=== PATIENT | male | born 1955 | race Caucasian/White ===

== ENCOUNTER 2016-12-09 06:51 | Inpatient (IN) | payer BC ==
--- NOTE | 2016-11-24 10:42 | NUR ---
PMH, allergies, meds reviewed and documented. Preop and DOS instructions given including handouts of medications to stop before surgery, shower instructions with CHG soap, letter from Dr Melchor, Surgical Services pamphlet, and my contact information.
--- NOTE | 2016-12-01 16:13 | NUR ---
PT STATUS I CALLED THE PATIENT AND ASK HIM TO START BOOST TOMORROW AND TO TAKE IT TWICE A DAY FOR 7 DAYS. THE PATIENT WILL COME AND PLANT CHANGER BOOST TODAY AND START IT TOMORROW.
[~2016-12-09] VITALS: Ht 182.9 cm; Wt 116.2 kg
[2016-12-09] VITALS (23 sets, daily range): BP systolic 88–157; BP diastolic 49–95; PULSE 58–80; RESP 16–18; TEMP 97.8–98.4; O2SAT 92–99; Ht 182.9 cm; Wt 116.2 kg
[~2016-12-09 06:51] MED LIST: ALLO300T74 PO; ASCO10007 PO; CEFAZOLIN 2 GM VIAL IV ONE; CELECOXIB 200 MG CAPSULE PO ONE; CHOL200026 PO; FAMOTIDINE 20mg IVPB 50 ML IV ONE; FISH1CAP29 PO; HYDR25TA PO; IBUP200C62 PO; LIDOCAINE 1% (10mg/ml) 2ml SDV ID ONE; LOSA100T44 PO; METOCLOPRAMIDE 10mg/2ml INJECTION IV ONE; MONT10TA25 PO; MULT-139 PO; OMEP20TA24 PO; TRAM50TA4 PO
--- OUTSIDE RECORDS SUMMARY | 2016-12-09 06:56 | XMS REPORT | Continuity of Care Document ---
Author Author [facility] Organization [facility] Address Unknown Phone Unavailable Support Name Relationship Address Phone JESSE DAVIDSON Caregiver [address] [place] [phone] RY MOSHER MD Caregiver [facility] [address] [place] [address] NICA KAY Next Of Kin [address] [place] [address] Insurance Providers Payer Name Policy Number Subscriber Name Relationship [employer] Other [id number] Marga Kay 19 Self Advance Directives Directive Response Recorded Date/Time Advanced Directives Type None 03/29/14 8:03am Ordered Resuscitation Status Full Code 03/28/14 5:46pm Problems No known problems or medical conditions. Medications Medication Dose Route Sig Days/Qty Instructions Order Date Discontinued Date Status Hydrochlorothiazide 25 Mg PO DAILY 03/28/14 Active Itraconazole 100 Mg PO DAILY 03/28/14 Active Lisinopril 20 Mg PO DAILY 03/28/14 Active Simvastatin 20 Mg PO DAILY 03/28/14 Active Allopurinol 300 Mg PO DAILY 03/28/14 Active Omeprazole 20 Mg PO BEFORE BREAKFAST 03/28/14 Active Multivits W-Fe,Other Min 1 Tab PO DAILY 03/29/14 Active Cholecalciferol 1,000 Unit PO DAILY 03/29/14 Active Ascorbic Acid 500 Mg PO DAILY 03/29/14 Active Fish Oil/Arnett-3 Fatty Acids 1 Cap PO DAILY 03/29/14 Active Social History Social History Problem Response Recorded Date/Time Smoking Status Never smoker 03/29/2014 7:05am Chewing Tobacco Status No 03/29/2014 7:05am Hx Substance Use No 03/29/2014 7:05am Hx Alcohol Use Y 1x/WK 03/29/2014 7:05am Has the pt used tobacco in the last 12 months No 03/29/2014 7:05am Hospital Discharge Instructions No hospital discharge instructions. Plan of Care No plan of care. Functional Status No functional status results. Allergies, Adverse Reactions, Alerts Allergen Type Severity Reaction Status Last Updated No Known Drug Allergies Allergy Unknown Active 03/28/14 Immunizations Name Given Type Hx Influenza Vaccination Y FALL 2011 Historical Hx Pneumococcal Vaccination No Historical Hx Influenza Vaccination Y FALL 2011 Historical Vital Signs Acute Vital Signs Vital Response Date/Time Temperature (Fahrenheit) 97.5 deg F (96.8 - 99.1) Temperature (Calculated Celsius) 36.90023 degrees C (36.0 - 37.3) Temperature Source Temporal Pulse Rate (adult) 57 bpm (60 - 100) Respiratory Rate 16 breaths/min (10 - 20) O2 Sat by Pulse Oximetry 94 % (90 - 100) Blood Pressure 114/69 mm Hg Blood Pressure Source Automatic Cuff Height 6 ft 0 in Weight 239 lb Body Mass Index 32.0 kg/m^2 Results Test Source Date Result Interp. Ref. Range Comments Calcium Level March 29, 2014 6:45am 9.0 MG/DL N 8.4-10.2 COMMENT NSC WILL CALL Calculated Osmolality March 29, 2014 6:45am 273 MOSM/KG N 261-280 COMMENT NSC WILL CALL Glucose Level March 29, 2014 6:45am 97 MG/DL N 75-110 COMMENT NSC WILL CALL Glomerular Filtration Rate Calc March 29, 2014 6:45am 87 - COMMENT NSC WILL CALL BUN/Creatinine Ratio March 29, 2014 6:45am 29 RATIO H 6-26 COMMENT NSC WILL CALL Creatinine March 29, 2014 6:45am 0.9 MG/DL N 0.8-1.5 COMMENT NSC WILL CALL Blood Urea Nitrogen March 29, 2014 6:45am 26.0 MG/DL H 9-20 COMMENT NSC WILL CALL Anion Gap March 29, 2014 6:45am 10 MEQ/L N 5-15 COMMENT NSC WILL CALL Carbon Dioxide Level March 29, 2014 6:45am 28 MEQ/L N 22-30 COMMENT NSC WILL CALL Chloride Level March 29, 2014 6:45am 101 MEQ/L N 98-107 COMMENT NSC WILL CALL Potassium Level March 29, 2014 6:45am 3.9 MEQ/L N 3.6-5 COMMENT NSC WILL CALL Sodium Level March 29, 2014 6:45am 139 MEQ/L N 134-144 COMMENT NSC WILL CALL Turbidity March 29, 2014 6:45am < 20 0-20 COMMENT NSC WILL CALL Chemistry Specimen Hemolysis March 29, 2014 6:45am < 15 0-25 0-25: No Hemolysis.26-70: Slight Hemolysis - can falsely elevate K and Urine Protein. 71-285: Moderate Hemolysis - can falsely elevate K, Troponin I, CA 19-9, PTH, CSF GLucose, and Urine Protein, and can falsely decrease Phenytoin. 286-999: Gross Hemolysis - can falsely elevate K, Troponin I, CA 19-9, PTH, CSF Glucose, and Urine Protine, and can falsely decrease Phenytoin. Recommend specimen recollection. Icterus Index March 29, 2014 6:45am < 2 0-7 COMMENT NSC WILL CALL Procedures Procedure Status Date Provider(s) Shoulder arthroscopy completed 03/29/14 RY MOSHER MD
--- OUTSIDE RECORDS SUMMARY | 2016-12-09 06:56 | XMS REPORT | Continuity of Care Document ---
Author Author [facility] Address Unknown Phone Unavailable Allergies Medications Problems Procedures Results Encounters ACCT No. Visit Date/Time Discharge Status Pt. Type Provider Facility Loc./Unit Complaint [id number] 05/31/2013 11:26:00 2012 23:59:59 CLS Outpatient
[2016-12-09] MEDS ORDERED: NOZIN NASAL SWAB NS ONE ×2 (07:00→11:30)
[2016-12-09] MEDS ORDERED: LR 1,000 ML IV PRN (07:00)
[2016-12-09] MEDS ORDERED: ONDANSETRON 4mg/2ml INJECTION IV ONE (07:00)
[2016-12-09] MEDS ORDERED: DEXAMETHASONE 4mg/ml - 1ml INJECTION IV ONE (07:00)
[2016-12-09] MEDS ORDERED: ACETAMINOPHEN 500 MG TABLET PO ONE (07:00)
[2016-12-09] MEDS ORDERED: VANCOMYCIN 1 GRAM INJECTION ONE (08:36)
--- NOTE | 2016-12-09 09:08 | PDHPBRIEF ---
History and Physical Update Date DATE: 12/09/16 TIME: 09:08 I evaluated this patient and found no changes in the history and clinical exam findings. The recommendations and treatment plan is also unchanged from the previous documentation. DAVEY BROOKS Dec 09, 2016 09:08
[2016-12-09] MEDS ORDERED: MIDAZOLAM 2mg/2ml INJECTION IV ONE (09:26)
[2016-12-09] MEDS ORDERED: EPINEPHRINE 1mg/ml INJECTION AMP INJ ONE (09:43)
[2016-12-09] MEDS ORDERED: PHENYLEPHRINE 10mg/ml INJECTION IV ONE (09:56)
[2016-12-09] MEDS ORDERED: SALINE FLUSH 10ml SYRINGE IVF ONE (09:57)
[2016-12-09] MEDS ORDERED: TRANEXAMIC ACID 1,000 MG in NORMAL SALINE 100 ML IV ONE ×2 (10:15→11:15)
--- NOTE | 2016-12-09 10:17 | ANESPREOP ---
Anesthesia Record Date and Time DATE: 12/09/16 TIME: 08:06 Pre-Op Diagnosis Left hip degeneration Proposed Surgical Procedure LT GRETCHEN NPO since: Midnight Allergies: Coded Allergies: No Known Drug Allergies (Unverified Allergy, Unknown, 12/09/16) Ht/Wt/BMI Height: 6 ' 0.00 " Weight: 116.200 kg BMI: 34.7 kg/m2 Vital Signs Date Time Temp Pulse Resp B/P Pulse Ox O2 Delivery O2 Flow Rate FiO2 12/09/16 07:06 98.4 64 16 157/95 97 Room Air Medications Inpatient Medications Current Medications Medications (Trade) Dose Ordered Sig/Charity Start Time Stop Time Status Last Admin Dose Admin Lactated Ringer's (Lactated Ringers) 1,000 ml @ 50 mls/hr Q20H PRN 12/09/16 07:00 12/09/16 07:50 50 MLS/HR Allopurinol (Allopurinol) 300 Mg Tablet, 300 MG PO DAILY, (Reported) Last Taken: on 12/08/16544 Ascorbic Acid (Vitamin C) 1,000 Mg Tablet, 1 TAB PO DAILY, (Reported) Last Taken: on 12/08/1645 Cholecalciferol (Vitamin D3) (Vitamin D-3) 2, 000 Unit Capsule, 1 CAP PO DAILY, (Reported) Last Taken: on 12/08/1645 Hydrochlorothiazide (Hydrochlorothiazide) 25 Mg Tablet, 1 TAB PO DAILY, (Reported) Last Taken: on 12/08/1645 Ibuprofen (Ibuprofen) 200 Mg Capsule, 2 CAP PO Q4H PRN for PAIN, (Reported) Last Taken: on 12/01/16 Losartan Potassium (Losartan Potassium) 100 Mg Tablet, 100 MG PO DAILY, (Reported) Last Taken: on 12/08/1645 Montelukast Sodium (Montelukast Sodium) 10 Mg Tablet, 10 MG PO DAILY, (Reported) Last Taken: on 12/08/1645 Multivits W-Fe,Other Min (Multivitamin And Minerals) 1 Tab Tablet, 1 TAB PO DAILY, (Reported) Last Taken: on 12/08/1645 Omeprazole (Prilosec) 20 Mg Tablet.dr, 20 MG PO ACB, (Reported) Last Taken: on 12/09/16 0545 Tramadol HCl (Tramadol HCl) 50 Mg Tablet, 50 MG PO Q4H PRN for PAIN, (Reported) Take 1 tablet, by mouth, every 4 hours. Last Taken: on 12/08/16 2100 Currently on Beta Cheko: No Medical/Surgical History Anesthesia PMH: Reports: *Hypertension, Arthritis (HIPS; KNEES), Reflux ( controlled with med), Denies: Anesthesia Reactions (NO KNOWN AIRWAY ISSUES), Cancer, Clotting Problems, Deep Vein Thrombosis, Glaucoma, Malignant Hyperthermia, Renal Disease, Sleep Apnea Smoking Status: Never smoker Has pt. smoked today?: No Use Chewing Tobacco?: No Second Hand Exposure: No Substance Use Type: does not use Past Surgical History Orthopedic Surgeries: Yes - LT RCR 2013; RT RCR ; Left Total Knee Abdominal Surgeries: Yes - APPY Genitourinary Surgeries: No Cardiac Surgeries: No Endocrine Surgeries: No Reproductive Surgeries: No Neurological Surgeries: No Ear Surgeries: No Nose Surgeries: No Throat Surgeries: No Other Surgeries: Yes - COLONOSCOPY Anesthesia Adverse Reactions: FOUND none Pertinent Findings EKG Rhythm: Sinus Rhythm Physical Exam Respiratory: Lungs clear Cardiovascular: FOUND Regular rate, rhythm Airway Assessment Mallampati Score: II TMD: 3 Fingerbreadths Neck Extension: Good Overall Assessment: No Airway Concerns ASA: 3 Plan Regional: Spinal Discussion Discussed risks/options/alternatives of anesthesia and questions answered. Patient consents. Nursing pain assessment noted. Attestation Statement Prior to the delivery of any anesthetic medication, I examined the patient, developed the plan, obtained the patient's consent and discussed the risk and benefits of the procedure with the patient/guardian. CHERYL AMIN CRNA Dec 09, 2016 08:08
--- NOTE | 2016-12-09 10:46 | NUR ---
CM CM ATTEMPTED VISIT. PT IS AT PROCEDURE. NO FAMILY IS PRESENT IN THE ROOM. CM CONTACT INFORMATION IS LEFT AT THE BEDSIDE.
--- NOTE | 2016-12-09 11:12 | PDOPERATE ---
Operative Report Date of Operation 12/09/16 Side: Left Preoperative Diagnosis: hip primary DJD Postoperative Diagnosis Same as preoperative diagnosis. Operation/Procedure: total hip arthroplasty (left) Surgeon Herman Melchor MD Behavioral Assistant LARISSA Valdez Complications None. Regional Block: Spinal Estimated Blood Loss See Anesthesia Record. Fluids Please See Anesthesia Record. Description of Operation Mr. Kay and his left hip were identified and marked in the the preoperative holding area. He was then brought back to the operating suite and proper anesthesia was administered. He was then positioned lateral on the operating table. The left lower extremity was then prepped and draped in my normal sterile fashion. Timeout was performed with all operating room personnel. A posterior approach was utilized. Approximately 15 cm incision was made in the skin and dissection carried down to the muscle fascia which was then split in line with skin incision. Charnley retractor was placed and the short external rotators were identified and tagged and detached. Capsulotomy was performed and the hip dislocated. A femoral neck osteotomy was performed approximately 1 cm proximal to the lesser trochanter. The head was removed and acetabulum exposed. Labrum was removed. He had what appeared to be a old large tear of the anterior superior labrum. I then sequentially reamed to a size 55 and placed a 56 cup in 20 of anteversion. A liner was then placed. The proximal femur was exposed and prepared with a cookie cutter followed by reaming and broaching to a size 11. We trialed the 0 head. I trialed both a 132 and 127 neck. Both were stable with a 127 felt like to much offset. After thorough irrigation a final Secure Fit Max size 11 stem with 132 neck was placed. Again a 0 head felt good as far stability and leg length. A final ceramic 36 mm standard head was placed and the hip reduced. Betadine solution was allowed to sit in the wound for 3 minutes and fully irrigated out with normal saline. Joint cocktail was injected throughout soft tissue. The capsulotomy was repaired with Ethibond. Short external rotators were also repaired with Ethibond. 1 g of vancomycin powder was placed into the wound. The muscle fascia was then repaired with #1 Vicryl. I then left my system to close the subcutaneous tissue with 2-0 Vicryl followed by running 4-0 Monocryl skin followed by Dermabond and a sterile dressing. The patient with any placed back into supine position and taken to recovery room in the care of anesthesia. PABLO MELCHOR MD Dec 09, 2016 11:12
[2016-12-09] MEDS ORDERED: EPINEPHRINE 0.25 MG, BUPIVACAINE 0.25% 75 MG, MORPHINE SULFATE 15 MG, KETOROLAC 60 MG i... INJ ONE ×5 (11:15)
[2016-12-09] MEDS: NORMAL SALINE 1,000 ML IV SCH (11:29)
[2016-12-09] MEDS ORDERED: PRN ORDERS MC (11:30)
[2016-12-09] MEDS ORDERED: ONDANSETRON 4mg/2ml INJECTION IV PRN ×2 (11:30)
[2016-12-09] MEDS ORDERED: DiphenhydrAMINE 50 MG/ML INJECTION IV PRN (11:30)
[2016-12-09] MEDS ORDERED: HYDROMORPHONE 2mg/ml INJECTION IV PRN (11:30)
[2016-12-09] MEDS ORDERED: DiphenhydrAMINE 25 MG CAPSULE PO PRN (11:30)
[2016-12-09] MEDS ORDERED: METOCLOPRAMIDE 10mg/2ml INJECTION IV PRN (11:30)
[2016-12-09] MEDS ORDERED: LORAZEPAM 1 MG TABLET PO PRN (11:30)
[2016-12-09] MEDS ORDERED: SENNOSIDES 8.6 MG TABLET PO PRN (11:30)
--- NOTE | 2016-12-09 11:55 | ANESPO ---
Post-Op Note Date 12/09/16 Time: 11:55 Status Vital Signs Date Time Temp Pulse Resp B/P Pulse Ox O2 Delivery O2 Flow Rate FiO2 12/09/16 11:45 61 16 108/59 95 Room Air 12/09/16 11:35 6.00 12/09/16 11:31 97.9 Respiratory Function: Airway patent Cardiovascular Function: Regular pulse Telemetry Pattern: SR Mental Status: Alert/oriented Pain Level Intensity: 0 Unable to Assess Pain Due To: Medicated/Sleeping Hydration: IV infusing Complications during Recovery None apparent Follow-Up Instructions Instructions Per Surgeon CHERYL AMNI CRNA Dec 09, 2016 11:55
--- NOTE | 2016-12-09 12:05 | NUR ---
ARRIVAL TO FLOOR PT ARRIVED TO FLOOR, ASSISTED FROM CART TO BED. POST OP VITAL SIGNS STARTED. WILL CONTINUE TO MONITOR.
--- NOTE | 2016-12-09 13:04 | DI ---
Indication: ITS.REASON: POST LEFT HIP REPLACEMENT PROCEDURE: PELVIS W/1 VIEW LT HIP: Encounter: Initial Comparison: None Findings: Postoperative changes of left total hip replacement are seen. There is expected postoperative subcutaneous gas. No evidence of hardware failure or acute fracture. No retained radiopaque surgical instruments or sponges seen. Impression: New left total hip prosthesis without evidence of immediate complication. .
[2016-12-09] MEDS: ACETAMINOPHEN 325 MG TABLET PO SCH ×3 (13:31→20:56)
[2016-12-09] MEDS: TRAMADOL 50 MG TABLET PO PRN ×3 (13:32→22:15)
[2016-12-09] MEDS: NOZIN NASAL SWAB NS SCH ×2 (15:26→20:57)
[2016-12-09] MEDS: CEFAZOLIN 2 G in NORMAL SALINE 100 ML IV SCH (17:34)
--- NOTE | 2016-12-09 19:53 | NUR ---
PROGRESS NOTE PT ALERT AND ORIENTED X3. VITAL SIGNS STABLE ON RA. PT HAS WALKED THE HALLS X2 THIS SHIFT AND IS STEADY WITH GAITBELT WALKER AND X1 ASSIST. PT HAS BEEN GIVEN X2 DOSES OF TRAMADOL THIS SHIFT, RATED PAIN 0/10 AT SHIFT CHANGE. NO CONCERNS NOTED.
[2016-12-09] MEDS: ASPIRIN *EC* 325mg TABLET PO SCH (20:57)
[2016-12-09] MEDS ORDERED: SENNOSIDES 8.6 MG TABLET PO SCH (22:00)
[2016-12-10 00:12] VITALS: BP 102/64; PULSE 68; RESP 20; TEMP 97.9; O2SAT 96
[2016-12-10 00:26] VITALS: O2SAT 92
[2016-12-10] MEDS: NORMAL SALINE 1,000 ML IV SCH ×2 (01:36→12:29)
[2016-12-10] MEDS: CEFAZOLIN 2 G in NORMAL SALINE 100 ML IV SCH (01:42)
--- NOTE | 2016-12-10 04:51 | NUR ---
Summary Pt walked the halls before bed last night. Pt ambulates well with FWW, GB and standby assist. - Pt pain managed with Ultram. In the night, pt requested Ultram but the required amount of time had not passed since pt's last dose. Pt declined to being woken when Ultram available. - Oximetry monitor notified this nurse of pt O2 drop to 77%. This nurse arrived to pt room and witnessed a 23 second apneic episode. Pt roused and repositioned. No further O2 drops reported.
[2016-12-10 05:40] VITALS: O2SAT 92
[2016-12-10 06:15] LABS: HCT - HEMATOCRIT 35.3 % (41-53); HGB - HEMOGLOBIN 12.2 GM/DL (13.5-17.5); MEAN CORPUSCULAR HGB 32.9 UUG (26-34); MEAN CORPUSCULAR HGB CONC(MCHC 34.6 GM/DL (31-37); MEAN CORPUSCULAR VOLUME 95.1 UM3 (80-100); MEAN PLATELET VOLUME 9.8 UM3 (9.4-12.4); RED BLOOD COUNT 3.71 M/MM3 (4.50-5.90); WBC - WHITE BLOOD COUNT 9.5 T/MM3 (4.5-11.0)
[2016-12-10 06:24] LABS: ANION GAP 12 MEQ/L (5-15); BUN/CREATININE RATIO 26 RATIO (6-26); CALCIUM 8.6 MG/DL (8.4-10.2); CHLORIDE 106 MEQ/L (98-107); CO2 - CARBON DIOXIDE 22 MEQ/L (22-30); CREATININE 0.8 MG/DL (0.8-1.5); GLOMERULAR FILTRATION RATE 99; GLUCOSE 118 MG/DL (75-110); POTASSIUM 4.6 MEQ/L (3.6-5); SODIUM 140 MEQ/L (134-144)
[2016-12-10] MEDS: NOZIN NASAL SWAB NS SCH (06:27)
[2016-12-10] MEDS: TRAMADOL 50 MG TABLET PO PRN ×2 (06:28→10:32)
[2016-12-10] MEDS ORDERED: OMEPRAZOLE 20 MG CAPSULE PO SCH (06:30)
[2016-12-10 08:00] VITALS: PULSE 68; RESP 20
[2016-12-10] MEDS ORDERED: HYDROCHLOROTHIAZIDE 25 MG TABLET PO SCH (08:00)
--- NOTE | 2016-12-10 08:09 | PDORTHOPN ---
Subjective Date DATE: 12/10/16 TIME: 08:06 Subjective Lloyd is doing great. His pain is well controlled and he has ambulated good distances. No other complaints today. Objective Vital Signs Vital signs Vital Signs 12/09/16 12/09/16 12/10/16 12/10/16 22:16 22:18 00:12 00:26 Temp 97.9 Pulse 68 73 68 72 Resp 16 20 B/P 118/67 102/64 Pulse Ox 96 95 96 92 O2 Delivery Room Air Room Air Room Air Room Air 12/10/16 05:40 Pulse 68 Pulse Ox 92 O2 Delivery Room Air Height (Feet): 6 Height (Inches): 0.00 Weight (Kilograms): 116.200 General General Appearance: No Acute Distress Respiratory (Brief) Respiratory Brief: FOUND: non-labored Cardiovascular (Brief) Cardiac: FOUND: calf easily compressible, calf soft, nontender, pedal pulses intact Surgical Site Incision: FOUND: Mepilex dressing intact, no drainage Neurologic (Brief) Neurological Brief: FOUND: extremities w/o deficits, neuro intact Psychiatric (Brief) Psychiatric Brief: FOUND: alert, no acute distress Laboratory Laboratory Laboratory Tests 12/10/16 05:59 Laboratory Tests 12/10/16 05:59 Assessment & Plan Problems: (1) Degenerative arthritis of hip Status: Chronic Assessment & Plan: X S/P Lt GRETCHEN 12/09 SCDs , Aspirin and early mobilization for DVT prevention. ASA for DVT coverage x 6 weeks. Celebrex x 6 weeks if covered by insurance. Hospital Course Summary Disclaimer The visit summary below is not to be considered part of the above Progress Note. DAVEY BROOKS Dec 10, 2016 08:09
[2016-12-10 08:11] VITALS: BP 160/89; PULSE 77; RESP 16; TEMP 97.8; O2SAT 98
[2016-12-10] MEDS ORDERED: DOCUSATE SODIUM 100 MG CAPSULE PO SCH (09:00)
[2016-12-10] MEDS ORDERED: LOSARTAN 100 MG TABLET PO SCH (09:00)
[2016-12-10] MEDS ORDERED: POLYETHYL.GLYCOL 3350 PACKET 17gm PO SCH (09:00)
[2016-12-10] MEDS ORDERED: MONTELUKAST 10 MG TABLET PO SCH (09:00)
[2016-12-10] MEDS ORDERED: ALLOPURINOL 300 MG TABLET PO SCH (09:00)
[2016-12-10] MEDS ORDERED: CELECOXIB 200 MG CAPSULE PO SCH (09:00)
--- NOTE | 2016-12-10 10:15 | NUR ---
THIS WORKER MET WITH PT ON THIS DATE. THIS WORKER INTRODUCED SELF AND ROLE OF CASE MANAGEMENT. PT PLANNING TO RETURN HOME. HAS SPOUSE AT HOME AND OTHERS AVAILABLE IF NEEDED. PT DENIED OTHER NEEDS AT THIS TIME. PT HAS FWW, WANTS TO DO PHYSICAL THERAPY AT [facility], LAB AT [facility] AND USES [facility] IN [place] FOR PHARMACY. PT WAS GIVEN THIS WORKER'S CONTACT INFORMATION AND ENCOURAGED TO CONTACT THIS WORKER WITH ANY NEEDS. Addendum: 12/10/16 at 1102 by KUSHAL MARCELINO AWAITING PRESCRIPTION FROM PHYSICIAN BEFORE QUOTE CAN BE OBTAINED FROM PHARMACY.
[2016-12-10] MEDS: ASPIRIN *EC* 325mg TABLET PO SCH (10:18)
[2016-12-10] MEDS: ACETAMINOPHEN 325 MG TABLET PO SCH (10:21)
[2016-12-10 10:24] VITALS: PULSE 68; RESP 20
[2016-12-10] MEDS ORDERED: ASPI-917 PO (13:10)
[2016-12-10] MEDS ORDERED: ACET-2321 PO (13:10)
[2016-12-10] MEDS ORDERED: CELE200C PO (13:10)
[2016-12-10] MEDS ORDERED: TRAM50TA53 PO (13:10)
[2016-12-10] MEDS ORDERED: POLY17PO18 PO (13:10)
--- NOTE | 2016-12-10 13:11 | NUR ---
CM RX FOR CELEBREX 200MG PO BID X6 WEEKS IS CALLED TO [facility] AT [facility] (P# [phone]). CM REQUESTS RETURN CALL TO [facility] AT [phone] WITH PT OUT OF POCKET COST FOR MEDICATION.
--- NOTE | 2016-12-10 13:30 | NUR ---
CM THIS WORKER OBTAINED OUT OF POCKET COST FOR MEDICATION. PT WOULD NOT BE ABLE TO AFFORD THIS. BO DIAS NOTIFIED. ALTERNATE MEDICATIONS DISCUSSED. PT AWARE AND IN AGREEMENT. PT AND (NOW PRESENT) DENIED ANY FURTHER NEEDS AT THIS TIME.
[2016-12-10] MEDS ORDERED: NAPR220T61 PO (13:32)
--- NOTE | 2016-12-10 13:40 | DSPDOC ---
General Date Date DATE: 12/10/16 TIME: 13:37 Attending Physician Suhas Melchor MD Admitting Physician Suhas Melchor MD Consulting Physician Admitting Diagnosis PRIMARY DEGENERATIVE JOINT DISEASE LEFT HIP Discharge Diagnosis primary DJD left hip Procedures total hip arthroplasty Diagnosis Left hip primary DJD History of Present Illness HPI Elements This patient was admitted for elective surgical tx of end stage degenerative joint disease that failed to respond to conservative treatment. Further details of this is found in the admission H&P. Hospital Course After appropriate preoperative clearance and signing of operative consent, the patient was given IV antibiotics, according to orthopedic protocol. The patient was taken to the operating room and underwent elective joint arthroplasty. Following surgery, antibiotics were discontinued less than 24 hours according to joint protocol. Appropriate anticoagulants were initiated and SCDs added for DVT prevention. The dressing was clean, dry, and intact. Pain control was obtained via multimodal approach. Bowel motivation addressed with scheduled and PRN medications. Early mobilization was initiated through PT services. Discharge arrangements made by a collaborative effort between the patient and Case Management. Follow-up is scheduled in 2-3 weeks. Discharge instructions given by orthopedic providers and nursing staff at discharge. Discharge condition was good. Problems: (1) Degenerative arthritis of hip Status: Chronic Assessment & Plan: X S/P Lt GRETCEHN 12/09 SCDs , Aspirin and early mobilization for DVT prevention. ASA for DVT coverage x 6 weeks. Celebrex x 6 weeks if covered by insurance. Associated Postoperative Event: Acute P.O. Anemia Ongoing Care Required?: No Acute P.O. Anemia: Patient received IVF, Labs monitored daily, No intervention required, HGB drop-acceptable range Other Postoperative Events: Celbrex was D/C'd at discharge due to cost. Aleve was recommended. Laboratory Laboratory Tests Test 12/10/16 05:59 White Blood Count 9.5T/MM3 Red Blood Count 3.71M/MM3 Hemoglobin 12.2GM/DL Hematocrit 35.3% Mean Corpuscular Volume 95.1UM3 Mean Corpuscular Hemoglobin 32.9UUG Mean Corpuscular Hemoglobin Concent 34.6GM/DL RDW Standard Deviation 40.8FL Platelet Count 220T/MM3 Mean Platelet Volume 9.8UM3 Turbidity < 20 Sodium Level 140MEQ/L Potassium Level 4.6MEQ/L Chloride Level 106MEQ/L Carbon Dioxide Level 22MEQ/L Anion Gap 12MEQ/L Blood Urea Nitrogen 21.0MG/DL Creatinine 0.8MG/DL Glomerular Filtration Rate Calc 99 BUN/Creatinine Ratio 26RATIO Glucose Level 118MG/DL Calculated Osmolality 273MOSM/KG Calcium Level 8.6MG/DL Icterus Index < 2 Chemistry Specimen Hemolysis < 15 Home Meds Active Scripts Naproxen Sodium (Aleve) 220 Mg Tablet, 440 MG PO BIDWM for PAIN, #84 TAB Take 2 tablets, by mouth, twice daily with meals. Prov:BO CARRANZA 12/10/16 Polyethylene Glycol 3350 (Healthylax) 17 Gm Powd.pack, 17 G PO DAILY, #30 PACKET Prov:BO CARRANZA 12/10/16 Tramadol HCl (Ultram) 50 Mg Tablet, 50-100 MG PO Q4H Y for PAIN, #60 TAB Prov:BO CARRANZA 12/10/16 Aspirin *EC* (Aspirin EC) 325 Mg Tablet.dr, 325 MG PO BID, #84 TAB Prov:BO CARRANZA 12/10/16 Acetaminophen (Tylenol) 325 Mg Tablet, 650 MG PO QID, #100 TAB Prov:BO CARRANZA 12/10/16 Reported Medications Losartan Potassium (Losartan Potassium) 100 Mg Tablet, 100 MG PO DAILY, TAB 04/22/16 Ascorbic Acid (Vitamin C) 1,000 Mg Tablet, 1 TAB PO DAILY 04/21/16 Cholecalciferol (Vitamin D3) (Vitamin D-3) 2,000 Unit Capsule, 1 CAP PO DAILY 04/21/16 Hydrochlorothiazide (Hydrochlorothiazide) 25 Mg Tablet, 1 TAB PO DAILY 09/17/15 Montelukast Sodium (Montelukast Sodium) 10 Mg Tablet, 10 MG PO DAILY 08/20/15 Multivits W-Fe,Other Min (Multivitamin And Minerals) 1 Tab Tablet, 1 TAB PO DAILY, TAB 03/29/14 Omeprazole (Prilosec) 20 Mg Tablet.dr, 20 MG PO ACB, CAP 03/28/14 Allopurinol (Allopurinol) 300 Mg Tablet, 300 MG PO DAILY, TAB 03/28/14 Discontinued Reported Medications Ibuprofen (Ibuprofen) 200 Mg Capsule, 2 CAP PO Q4H Y for PAIN, CAP 12/08/16 Tramadol HCl (Tramadol HCl) 50 Mg Tablet, 50 MG PO Q4H Y for PAIN, TAB Take 1 tablet, by mouth, every 4 hours. 11/24/16 Discharge Disposition Please refer to Case Management Notes for patient's disposition. Estimated Blood Loss 100.0 BO CARRANZA Dec 10, 2016 13:40
[2016-12-10] MEDS ORDERED: OXYC1TAB8 PO (13:41)
--- NOTE | 2016-12-10 13:58 | NUR ---
DISCHARGE PATIENT IS ALERT AND ORIENTED X3. PATIENT DISCHARGE INSTRUCTIONS INCLUDE: NEW MEDICATIONS, CONTINUED MEDICATIONS, STOPPED MEDICATIONS, REASONS TO CALL DOCTOR AND/OR SEEK IMMEDIATE CARE, SIGNS AND SYMPTOMS OF INFECTION, INCISION/DRESSING CARE, ACTIVITY/BATHING, DIET, AND DI FOR POST OP ORTHO. PERSONAL BELONGINGS RETURNED. IV DISCONTINUED. SCRIPTS INCLUDING PERCOCET AND, ULTRAM GIVEN TO AND PATIENT. PATIENT AMBULATED TO FRONT ENTRANCE WITH NURSING STAFF. PATIENT TRANSPORTED HOME FOR SELF CARE BY .
[2016-12-11] MEDS ORDERED: MILK OF MAGNESIA 30 ML SUSP PO SCH (08:00)
[2016-12-11] MEDS ORDERED: BISACODYL 10 MG SUPPOSITORY RECTALLY SCH (20:00)
== END 2016-12-10 13:58 | disposition home or self-care (01) | DRG 470 ==
LOC: SRG 06:51
PROVIDERS: ADMIT Orthopaedic Surgery; ATTEND Orthopaedic Surgery
PROC: 0SRB04A Replacement of Left Hip Joint with Ceramic on Polyethylene Synthetic Substitute, Uncemented, Open Approach (ICD-10-PCS; principal; 2016-12-09 09:52)
DX: M16.12 Unilateral primary osteoarthritis, left hip (principal); D64.9 Anemia, unspecified; I10 Essential (primary) hypertension; K21.9 Gastro-esophageal reflux disease without esophagitis; E78.00 Pure hypercholesterolemia, unspecified
CPT/HCPCS: 36415; 80048; 85027; 94664; 94762